=== PATIENT | female | born 1965 | race Caucasian/White ===

== ENCOUNTER 2017-06-17 13:03 | Inpatient (IN) ==
[2017-06-17] MEDS ORDERED: 0.9 % SODIUM CHLORIDE 1,000 ML IV ONE (13:37)
[2017-06-17] MEDS ORDERED: ONDANSETRON 4 MG/2 ML VIAL IV ONE (13:37)
[2017-06-17 14:20] LABS: Basophils # (Auto) 0 K/mcL (0.0-0.3); Basophils % (Auto) 0.3 % (0.0-2.0); Eosinophils # (Auto) 0.2 K/mcL (0.0-0.7); Eosinophils % (Auto) 2.8 % (0.0-7.0); Mean Cell Volume 89.8 fL (80.0-100.0); Mean Corpuscular HGB Conc 34.4 g/dL (31.0-36.0); Mean Corpuscular Hemoglobin 30.9 pg (26.0-34.0); Monocytes # (Auto) 0.7 K/mcL (0.1-0.9); Monocytes % (Auto) 8.9 % (1.0-12.0); Platelet Count 308 K/mcL (140-440); RBC 4.95 M/mcL (4.00-5.20); Red Cell Distribution Width 12.9 % (11.5-14.5)
--- NOTE | 2017-06-17 14:42 | Cat Scan Report ---
ORIGINAL REPORT CLINICAL INFORMATION: History of urolithiasis and lithotripsy. Left flank pain. COMPARISON: Previous CT scans dated 06/13/2017, 09/17/2016, 02/12/2016 TECHNIQUE: Axial images were obtained through the abdomen and pelvis. Sagittally and coronally reformatted images. FINDINGS: There are tiny calculi bilaterally. These are nonobstructing there is mild left hydronephrosis with prominent left renal pelvis and proximal ureter. Findings are essentially unchanged. There is no left ureteral stone. There is left renal atrophy. This is stable. No right-sided hydronephrosis. No bladder calculus. No detectable bladder mass on this noncontrast enhanced examination. No perinephric hematoma. No hemoperitoneum. No pneumoperitoneum. Lung bases are negative. No parenchymal infiltrate or mass. There is a 2.5 cm low-density mass in the right lobe of the liver. This is probably benign and is stable since 2016. Spleen is mildly enlarged. Spleen measures 13 cm maximally. Adrenal glands are negative. Negative pancreas. No free intraperitoneal fluid. No localized fluid collections. No pneumoperitoneum. Colon is negative. No mechanical small bowel obstruction. Uterus is present and anteflexed. No adnexal mass. IMPRESSION: 1. Tiny renal calculi bilaterally. Mild left hydronephrosis and proximal left hydroureter. Findings are unchanged 2. No perinephric hemorrhage. No acute intra-abdominal abnormality. The exam was performed using radiation dose optimization techniques including, but not limited to, automated exposure control, adjustment of the mA and/or kV according to patient size and use of iterative reconstruction technique. 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 There is no mass in the surgical bed. No fluid collection. No evidence for osseous metastases. Pelvis and spine are negative. Hips are negative. No retroperitoneal or inguinal adenopathy. Interpreted and Authenticated by: Naveen Angela 06/17/17
[2017-06-17 14:43] LABS: ALT/SGPT 321 U/l (0-40); Albumin 3.9 gm/dL (3.2-5.2); Albumin/Globulin Ratio 1.1 (1.0-2.3); Alkaline Phosphatase 276 U/L (39-117); Blood Urea Nitrogen 13 mg/dl (6-20)
--- NOTE | 2017-06-17 16:27 | Ultrasound Report ---
CLINICAL INFORMATION: Previous lithotripsy. Elevated liver function tests and severe abdominal pain TECHNIQUE: Grayscale and color flow Doppler spectral imaging COMPARISON: CT scan dated 06/17/2017 FINDINGS: There are multiple small mobile gallstones. Largest gallstone measures 1.6 cm. No gallbladder wall thickening. No pericholecystic fluid. No positive sonographic Solomon sign Common bile duct measures 8 mm. No detectable choledocholithiasis. Choledocholithiasis is not excluded based upon this examination. No intrahepatic bile duct dilatation Liver is enlarged. Liver measures 23 cm maximally. There is septated cystic abnormality in the right lobe of the liver. This is benign and stable. No other focal intrahepatic abnormality. Liver contour is smooth. No ascites. Normal hepatopedal portal venous flow. Portal vein is prominent and measures approximately 20 mm in cross-sectional diameter. Visualized portions of the pancreas are negative. IMPRESSION: 1. Cholelithiasis. Prominent common bile duct measures 8 mm. No definite choledocholithiasis identified on this examination. 2. Liver appears enlarged. No solid mass. Prominent portal vein with hepatopedal portal venous flow. Interpreted and Authenticated by: Naveen Angela 06/17/17
--- NOTE | 2017-06-17 17:22 | Emergency Department Note ---
Nausea/Vomiting/Diarrhea HPI - General Chief complaint: Nausea/Vomiting/Diarrhea Stated complaint: l flank pain, lithotripsy 2 wks ago Time Seen by Provider: 06/17/17 13:36 Source: patient Mode of arrival: ambulatory Limitations: no limitations - History of Present Illness HPI Narrative: 52-year-old female presents with continued abdominal pain, nausea, vomiting, and diarrhea. States she had kidney stones removed [address] Rutledge. States she has had abdominal pain, nausea, vomiting, and diarrhea since. She is getting worse not better. The pain is across her entire upper abdomen and describes it is very diffuse. Positive chills, unknown fever. No dysuria or frequency. No hematuria. She was seen 4 days ago for the same and states she is worse since then. She denies taking any Tylenol or ibuprofen at home. Denies any alcohol use. - Related Data Home Medications Medication Instructions Recorded Confirmed Insulin Glargine, Human [Lantus] 80 units SQ HS 02/12/16 06/17/17 Gabapentin [Neurontin] 100 mg PO TID 09/17/16 06/17/17 Insulin Aspart [Novolog] 60 unit SQ DAILY 06/03/17 06/17/17 Lisinopril [Zestril] 10 mg PO DAILY 06/03/17 06/17/17 Previous Rx's Medication Instructions Recorded Hydrocodone/APAP 7.5/325Mg [[place] 1 - 2 tab PO Q6HP PRN #20 tab 06/03/17 7.5-325Mg] Phenazopyridine [Pyridium] 200 mg PO TIDP PRN #15 tab 06/13/17 Allergies Allergy/AdvReac Type Severity Reaction Status Date / Time Sulfa (Sulfonamide Allergy Intermediate Rash Verified 06/13/17 11:21 Antibiotics) promethazine [From Phenergan] AdvReac Intermediate Agitated Verified 06/13/17 11 :21 Review of Systems All systems ED: reviewed and negative except as stated. Past Medical History - Past Medical History Medical history: Reports: DM, hyperlipidemia, hypertension, other (Recurrent kidney stones-including staghorn calculi on the right.) Surgical history ED: Reports: orthopedic, other (Removal of sarcoma from left hip/gluteal area 6 months ago), other (Previous urostomy tube and removal staghorn calculi from right kidney. Holmium laser ureteral stone treatment on the left) - Social History smoking status: Current some day smoker Alcohol use: Reports: None Drug use: Reports: none Physical Exam Limitations: no limitations General appearance: alert, in no apparent distress Head: atraumatic, normocephalic, normal inspection Eye: Present: normal appearance. Absent: conjunctival injection ENT: normal exam, normal oropharynx, mucous membranes moist, normal external ear exam Neck: Present: normal inspection, trachea midline. Absent: tenderness, lymphadenopathy Chest: Present: normal inspection, symmetric chest wall rise Respiratory: Present: normal lung sounds bilaterally. Absent: respiratory distress, wheezes, accessory muscle use Cardiovascular: Present: regular rate, normal heart sounds Abdominal: Present: soft, tenderness (Diffuse upper abdominal tenderness with palpation. Mildly worse on the right upper quadrant. No lower abdominal tenderness), normal bowel sounds. Absent: distention, guarding, rebound, mass Extremities: Present: normal inspection, normal capillary refill. Absent: pedal edema Neurological: Present: alert, oriented X3, normal gait Psychiatric: Present: normal affect, normal mood Skin: Present: warm, dry, intact, normal color Course Course Narrative: Patient had no acute abnormalities on her CT of her abdomen and pelvis. However her liver function tests were 10 times higher than they were 4 days ago. He again adamantly denies any taking medications that would cause this or drinking any alcohol. 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 I did speak with Dr. Dsouza , the surgeon pharmacy innovation assistant. He would like to admit the patient. Vital Signs Temperature 97.4 F 06/17/17 13:03 Pulse Rate 110 H 06/17/17 13:03 Respiratory Rate 20 06/17/17 13:03 Blood Pressure 145/89 06/17/17 13:03 Pulse Oximetry (%) 96 06/17/17 13:03 Temperature 97.4 F 06/17/17 13:03 Pulse Rate 91 H 06/17/17 16:07 Respiratory Rate 20 06/17/17 13:03 Blood Pressure 138/83 06/17/17 16:07 Pulse Oximetry (%) 95 06/17/17 16:07 Nausea/Vomiting/Diarrhea - Lab Data Result diagrams: 06/17/17 13:50 06/17/17 13:50 Lab Results 0306/17/17 06/17/17 Range/Units 13:50 13:50 13:50 WBC 8.1 (4.5-11.0) K/mcL RBC 4.95 (4.00-5.20) M/mcL Hgb 15.3 H (12.0-15.0) g/dL Hct 44.4 (36.0-48.0) % MCV 89.8 (80.0-100.0) fL MCH 30.9 (26.0-34.0) pg MCHC 34.4 (31.0-36.0) g/dL RDW 12.9 (11.5-14.5) % Plt Count 308 (140-440) K/mcL MPV 7.2 L (7.4-10.4) fL Gran % 76.0 (38.0-78.0) % Lymph % (Auto) 12.0 L (15.5-49.0) % [place] % (Auto) 8.9 (1.0-12.0) % Eos % (Auto) 2.8 (0.0-7.0) % Baso % (Auto) 0.3 (0.0-2.0) % Gran # 6.1 (1.8-8.0) K/mcL Lymph # (Auto) 1.0 L (1.5-4.8) K/mcL [place] # (Auto) 0.7 (0.1-0.9) K/mcL Eos # (Auto) 0.2 (0.0-0.7) K/mcL Baso # (Auto) 0 (0.0-0.3) K/mcL VBG Lactic Acid 0.8 (0.5-2.2) mmol/L Sodium 137 (133-145) mmol/L Potassium 4.1 (3.3-5.1) mmol/L Chloride 96 (96-108) mmol/L Carbon Dioxide 22 (22-30) mmol/L Anion Gap 19.0 H (8-16) BUN 13 (6-20) mg/dl Creatinine 0.6 (0.6-1.1) mg/dl GFR Calculation 106 Glucose 378 H (70-105) mg/dL Calcium 9.3 (8.6-10.4) mg/dl Total Bilirubin 0.4 (0.0-1.0) mg/dL AST 86 H (0-37) U/l ALT 321 H (0-40) U/l Alkaline Phosphatase 276 H (39-117) U/L Total Protein 7.4 (5.9-8.4) gm/dL Albumin 3.9 (3.2-5.2) gm/dL Globulin 3.5 (2.2-3.7) gm/dL Albumin/Globulin Ratio 1.1 (1.0-2.3) Disposition Pt seen by PASTE UP ARTIST APPRENTICE/PA only: No Clinical Impression: Cholelithiasis, Elevated LFTs Disposition: Home, Self-Care Condition: Fair Referrals: Coral Dsouza MD [Physician] - Time of Disposition: 17:25
[2017-06-17] MEDS: 0.9 % SODIUM CHLORIDE 1,000 ML IV SCH (17:30)
--- NOTE | 2017-06-17 19:37 | XRay Report ---
CLINICAL INFORMATION: Preoperative evaluation TECHNIQUE: AP portable semiupright chest x-ray COMPARISON: None. FINDINGS: Lungs are negative. No parenchymal infiltrate or mass. Heart size and vascularity are normal. Fifi and mediastinum are negative. No acute abnormality IMPRESSION: Negative AP chest x-ray Interpreted and Authenticated by: Naveen Angela 06/17/17
[2017-06-17] MEDS: PIPERACILLIN SODIUM/TAZOBACTAM 3.375 GM in DEXTROSE 5% IN WATER 50 ML IV SCH (20:35)
[2017-06-17] MEDS: ONDANSETRON 4 MG/2 ML VIAL IV PRN (21:58)
[2017-06-17] MEDS: HYDROmorphone 2 MG/ML VIAL IV PRN (22:02)
[2017-06-18] MEDS: PIPERACILLIN SODIUM/TAZOBACTAM 3.375 GM in DEXTROSE 5% IN WATER 50 ML IV SCH ×4 (00:30→18:15)
--- NOTE | 2017-06-18 00:34 | Emergency Department Note ---
ED Note Addendum Note Addendum: I saw this patient with Bharati ALONSO. I agree with her evaluation management documentation. I also discussed with her disposition further management with surgery. I personally reviewed her CT scan mildly from this visit but the last one as well
[2017-06-18] MEDS: HYDROmorphone 2 MG/ML VIAL IV PRN ×9 (02:00→21:40)
[2017-06-18] MEDS: 0.9 % SODIUM CHLORIDE 1,000 ML IV SCH ×3 (02:22→19:02)
[2017-06-18] MEDS ORDERED: INSULIN LISPRO 1 UNIT/0.01 ML UNIT SQ ONE (03:06)
[2017-06-18] MEDS: INSULIN LISPRO 1 UNIT/0.01 ML UNIT SQ SCH ×5 (03:08→23:48)
[2017-06-18] MEDS: ONDANSETRON 4 MG/2 ML VIAL IV PRN ×2 (05:04→21:47)
[2017-06-18 05:33] LABS: Basophils # (Auto) 0 K/mcL (0.0-0.3); Basophils % (Auto) 0.5 % (0.0-2.0); Eosinophils # (Auto) 0.3 K/mcL (0.0-0.7); Eosinophils % (Auto) 5.5 % (0.0-7.0); Granulocytes % (Auto) 57.1 % (38.0-78.0); Lymphocytes # (Auto) 1.6 K/mcL (1.5-4.8); Lymphocytes % (Auto) 26.7 % (15.5-49.0); Mean Cell Volume 90.6 fL (80.0-100.0); Mean Corpuscular HGB Conc 34.1 g/dL (31.0-36.0); Mean Corpuscular Hemoglobin 30.9 pg (26.0-34.0); Monocytes # (Auto) 0.6 K/mcL (0.1-0.9); Monocytes % (Auto) 10.2 % (1.0-12.0); Platelet Count 271 K/mcL (140-440); RBC 4.26 M/mcL (4.00-5.20); Red Cell Distribution Width 12.9 % (11.5-14.5)
[2017-06-18 05:47] LABS: Hemoglobin A1C 12.7 % HGB (4.0-6.0)
[2017-06-18 06:40] LABS: ALT/SGPT 209 U/l (0-40); Albumin 3.1 gm/dL (3.2-5.2); Alkaline Phosphatase 216 U/L (39-117); Bilirubin,Direct < 0.2 mg/dL (0.0-0.3); Blood Urea Nitrogen 8 mg/dl (6-20); Gamma Glutamyl Transpeptidase 384 U/L (5-36); Uric Acid 3.4 mg/dL (2.5-8.0)
[2017-06-18] MEDS: POTASSIUM PHOSPHATE 40 MEQ in DEXTROSE 5% IN WATER 500 ML IV SCH ×2 (10:01→14:19)
[2017-06-18] MEDS: MAGNESIUM SULFATE 32.48 MEQ in DEXTROSE 5% IN WATER 100 ML IV SCH ×2 (10:01→12:17)
--- NOTE | 2017-06-18 10:12 | Magnetic Resonance Report ---
CLINICAL INFORMATION: Cholelithiasis. Dilated common bile duct suspicious for choledocholithiasis TECHNIQUE: Routine noncontrast MRCP COMPARISON: Previous ultrasound dated 06/17/[address] scan dated 06/17/2017 FINDINGS: There are at least two large gallstones. These are demonstrated on previous ultrasound. No gallbladder wall thickening. No pericholecystic fluid. Common bile that measures 8 mm. This is mildly dilated. No significant intrahepatic bile duct dilatation. No detectable choledocholithiasis. No intraluminal filling defects. No detectable ampullary mass. Pancreatic duct is negative. There are at least two small cysts in the right lobe of the liver. There is a cyst in the posterior segment of the right lobe of the liver which was demonstrated on previous ultrasound. No solid hepatic mass. Multiple renal cortical and parapelvic cysts. No solid mass. Pancreas is negative. Spleen is negative. No splenomegaly. Adrenal glands are negative. IMPRESSION: 1. Cholelithiasis. 2. Prominent common bile duct without intrahepatic bile duct dilatation. No choledocholithiasis. No ampullary or common bile duct mass 3. Renal and hepatic cysts Interpreted and Authenticated by: Naveen Angela 06/18/17
--- NOTE | 2017-06-18 10:48 | General Surg History&Physical ---
History of Present Illness Patient information: Note initiated : 06/18/17 at 10:46 am Service Date, if different from initiated Date: [] Patient: Raisa Scruggs a 52 y/o F admitted on 06/17/17 for l flank pain, lithotripsy 2 wks ago. Chief Complaint: [] HPI: Ms. Scruggs is a 52 year old F admitted with abdominal pain nausea vomiting and diarrhea. The patient has a 5 day history of epigastric and right upper quadrant pain. She had multiple episodes of nausea and vomiting since onset of the pain. She has also had explosive diarrhea. The pain has been continuous since onset. She has not had similar pain in the past. She was seen in the emergency room 4 days ago and returns on the day of admission with worsening discomfort. She has documented gallstone disease with a dilated common bile duct with mild elevation of her transaminases. Patient is admitted and will have MRCP followed by laparoscopic cholecystectomy. Review of Systems - Constitutional lethargy, malaise, weight loss - EENT Nose, mouth and throat: no abnormal hearing, no dizziness, no headache(s) - Cardiovascular no chest pain at rest, no chest pain with activity, no dyspnea on exertion, no palpatations, no rapid heart rate, no syncope - Respiratory no cough, no dyspnea on exertion, no wheezing, no pain with cough - Gastrointestinal abdominal pain, diarrhea, heartburn, nausea, vomiting - Genitourinary Genitourinary: dysuria, flank pain, urinary frequency, urinary incontinence, urinary urgency - Musculoskeletal arthralgias, joint swelling, myalgias, stiffness - Integumentary no bleeding lesions, no changing lesions, no new lesions, no pruritus, no rash - Neurological no abnormal hearing, no confusion, no convulsions, no headache(s), no numbness, no syncope, no tremor(s), no vertigo, no weakness, no other visual disturbances - Psychiatric depression, no anxiety, no memory loss - Endocrine no change in body appearance, no excessive sweating, no palpitations, no polydipsia, no polyphagia, no polyuria - Hematologic/Lymphatic no easy bleeding, no easy bruising, no lymphadenopathy - Allergic/Immunologic no tongue swelling, no throat swelling, no uticaria, no wheezing, no lip swelling Past History Past medical history: Diabetes mellitus uncontrolled Multiple kidney stones bilaterally Multiple urinary tract infections Hypertension Past surgical history: Open removal of staghorn calculus right kidney Tubal ligation Percutaneous nephrostomy right kidney Excision of sarcoma left buttock Past family history: Stroke Diabetes mellitus Coronary artery disease with heart attack Hypertension Recurrent kidney stones Past social history: Everyday smoker but usually 2 cigarettes per day Denies alcohol use for 7 years Denies drug use Medications and Allergies Home Medications Medication Instructions Recorded Confirmed Type Insulin Glargine, Human [Lantus] 80 units SQ HS 02/12/16 06/18/17 History Gabapentin [Neurontin] 100 mg PO TID 09/17/16 06/18/17 History Hydrocodone/APAP 7.5/325Mg [[place] 1 - 2 tab PO Q6HP PRN #20 tab 06/03/17 Rx 7.5-325Mg] Insulin Aspart [Novolog] 60 unit SQ DAILY 06/03/17 06/18/17 History Lisinopril [Zestril] 10 mg PO DAILY 06/03/17 06/18/17 History Phenazopyridine [Pyridium] 200 mg PO TIDP PRN #15 tab 06/13/17 06/18/17 Rx DULoxetine [Cymbalta] 30 mg PO DAILY 06/18/17 06/18/17 History traZODone HCL [Trazodone HCl] 50 mg PO HS 06/18/17 06/18/17 History Allergies Allergy/AdvReac Type Severity Reaction Status Date / Time Sulfa (Sulfonamide Allergy Intermediate Rash Verified 06/13/17 11:21 Antibiotics) promethazine [From Phenergan] AdvReac Intermediate Agitated Verified 06/13/17 11 :21 Exam Temp Pulse Resp BP Pulse Ox 97.5 F 79 12 136/80 92 06/18/17 07:37 06/18/17 07:37 06/18/17 07:37 06/18/17 07:37 06/18/17 07:37 - General physical appearance well developed, well nourished, no distress, moderate pain, obese - Eyes PERRL, normal ocular movement. negative: icteric - ENT normal pinna, normal nares, normal mucosa, no hearing loss, no congestion - Head Head exam IM: Present: atraumatic, normal inspection, normocephalic - Neck no masses, no bruits, trachea midline, no lymphadectomy, no venous distension - Cardiovascular Cardiovascular exam IM: Present: normal rate and rhythm, RRR, +S1, +S2. Absent : JVD - Respiratory normal expansion, normal respiratory effort, clear to percussion, clear to auscultation - Abdomen Abdomen: Present: soft, tender (Tenderness in epigastrium and right upper quadrant), bowel sounds (Good active bowel sounds), guarding ( guarding and right upper quadrant) Hernia: Present: none - Genitourinary Present: normal external genitalia - Integumentary Present: no rash, no growths, no abnormal pigmentation - Neurologic Present: normal coordination, normal sensation - Musculoskeletal Present: normal gait, normal posture - Psychiatric Present: oriented to time, oriented to person, oriented to place, speech is normal, memory intact Assessment and Plan (1) Cholelithiasis and cholecystitis with obstruction Complete MRCP Schedule for laparoscopic cholecystectomy in the morning Continue to cover with IV Zosyn Status: Acute (2) Diabetes mellitus type 1, uncontrolled, insulin dependent Accu-Cheks every 6 hours Sliding scale insulin, medium scale until patient can resume diabetic diet Supplemental basal insulin if she continually runs high glucose Status: Acute Qualifiers: Diabetes mellitus complication status: without complication Qualified Code( s): E10.65 - Type 1 diabetes mellitus with hyperglycemia (3) Hypertension, essential Status: Acute (4) Chronic lower urinary tract infection Status: Acute (5) Calculus of kidney Status: Acute
[2017-06-18] MEDS: ACETAMINOPHEN 1,000 MG/100 ML BOTTLE IV SCH ×2 (16:15→23:42)
[2017-06-18] MEDS: KETOROLAC 30 MG/ML VIAL IV PRN (18:14)
[2017-06-19] MEDS: KETOROLAC 30 MG/ML VIAL IV PRN ×3 (00:37→20:16)
[2017-06-19] MEDS: HYDROmorphone 2 MG/ML VIAL IV PRN ×6 (00:43→21:57)
[2017-06-19] MEDS: PIPERACILLIN SODIUM/TAZOBACTAM 3.375 GM in DEXTROSE 5% IN WATER 50 ML IV SCH ×4 (00:47→17:44)
[2017-06-19] MEDS: 0.9 % SODIUM CHLORIDE 1,000 ML IV SCH ×2 (01:50→11:37)
[2017-06-19] MEDS: ACETAMINOPHEN 1,000 MG/100 ML BOTTLE IV SCH ×3 (05:36→17:35)
[2017-06-19 05:38] LABS: Basophils # (Auto) 0 K/mcL (0.0-0.3); Basophils % (Auto) 0.6 % (0.0-2.0); Eosinophils # (Auto) 0.4 K/mcL (0.0-0.7); Eosinophils % (Auto) 5.8 % (0.0-7.0); Granulocytes % (Auto) 49.7 % (38.0-78.0); Lymphocytes % (Auto) 33.7 % (15.5-49.0); Mean Cell Volume 91.4 fL (80.0-100.0); Mean Corpuscular HGB Conc 33.7 g/dL (31.0-36.0); Mean Corpuscular Hemoglobin 30.8 pg (26.0-34.0); Monocytes # (Auto) 0.6 K/mcL (0.1-0.9); Monocytes % (Auto) 10.2 % (1.0-12.0); Platelet Count 285 K/mcL (140-440); RBC 4.25 M/mcL (4.00-5.20); Red Cell Distribution Width 12.9 % (11.5-14.5)
[2017-06-19] MEDS: INSULIN LISPRO 1 UNIT/0.01 ML UNIT SQ SCH ×3 (05:41→21:46)
[2017-06-19 06:11] LABS: ALT/SGPT 132 U/l (0-40); Albumin 3.3 gm/dL (3.2-5.2); Albumin/Globulin Ratio 1.3 (1.0-2.3); Alkaline Phosphatase 182 U/L (39-117); Bilirubin,Direct < 0.2 mg/dL (0.0-0.3); Blood Urea Nitrogen 4 mg/dl (6-20); Gamma Glutamyl Transpeptidase 318 U/L (5-36); Uric Acid 2.9 mg/dL (2.5-8.0)
[2017-06-19] MEDS ORDERED: IPRATROPIUM/ALBUTEROL 3 ML AMPUL.NEB NEB PRN (09:09)
[2017-06-19] MEDS ORDERED: LACTATED RINGERS 250 ML IV PRN (09:09)
[2017-06-19] MEDS ORDERED: NALOXONE HCL 0.4 MG/ML VIAL IV PRN (09:09)
[2017-06-19] MEDS ORDERED: MEPERIDINE 25 MG/ML SYRINGE IV PRN (09:09)
[2017-06-19] MEDS ORDERED: ONDANSETRON 4 MG/2 ML VIAL IV PRN ×2 (09:09→12:07)
[2017-06-19] MEDS ORDERED: FLUMAZENIL 0.1 MG/ML ML IV PRN (09:09)
[2017-06-19] MEDS ORDERED: BENZOCAINE/MENTHOL 1 LOZENGE PO PRN (09:09)
[2017-06-19] MEDS ORDERED: diphenhydrAMINE 50 MG/ML VIAL IV PRN (09:09)
[2017-06-19] MEDS ORDERED: LACTATED RINGERS 1,000 ML IV SCH (09:15)
[2017-06-19] MEDS ORDERED: ROCURONIUM 10 MG/ML ML IV ONE (09:25)
[2017-06-19] MEDS ORDERED: MIDAZOLAM 5 MG/5 ML VIAL IV ONE (09:25)
[2017-06-19] MEDS ORDERED: fentaNYL 250 MCG/5 ML VIAL IV ONE (09:25)
[2017-06-19] MEDS ORDERED: GLYCOPYRROLATE 0.2 MG/ML VIAL IV ONE (09:25)
[2017-06-19] MEDS ORDERED: PROPOFOL 200 MG/20 ML VIAL IV ONE (09:25)
[2017-06-19] MEDS ORDERED: DEXAMETHASONE 10 MG/ML VIAL IV ONE (09:25)
[2017-06-19] MEDS ORDERED: SUCCINYLCHOLINE 20 MG/ML ML IV ONE (09:25)
[2017-06-19] MEDS ORDERED: ONDANSETRON 4 MG/2 ML VIAL IV ONE (09:25)
[2017-06-19] MEDS ORDERED: LIDOCAINE HCL/PF 100 MG/5 ML SYRINGE IV ONE (09:25)
[2017-06-19] MEDS ORDERED: NEOSTIGMINE 1 MG/ML VIAL IV ONE (09:25)
--- NOTE | 2017-06-19 10:29 | Brief Operative Note ---
Date of procedure: 06/19/17 Pre-op diagnosis: CHOLELITHIASIS WITH CHOLECYSTITIS Post-op diagnosis: other (CHOLELITHIASIS WITH CHOLECYSTITIS) Procedure: LAPAROSCOPIC CHOLECYSTECTOMY Grafts/Implants: No Anesthesia: GETA Findings: CHRONICALLY INFLAMED ,THICKENED GALLBLADDER Complications: none Surgeon: Coral Dsouza Estimated blood loss (cc): 10 Specimens Removed/Pathology: other (GALLBLADDER) Condition: stable Disposition: PACU
[2017-06-19] MEDS: fentaNYL 100 MCG/2 ML VIAL IV PRN ×3 (10:45→11:01)
[2017-06-19] MEDS: ONDANSETRON 4 MG/2 ML VIAL IV PRN ×2 (11:15→12:05)
[2017-06-19] MEDS ORDERED: 0.9 % SODIUM CHLORIDE 1,000 ML IV SCH (12:07)
[2017-06-19] MEDS ORDERED: GABAPENTIN 100 MG CAPSULE PO SCH (15:00)
[2017-06-19] MEDS: GABAPENTIN 100 MG CAPSULE PO SCH ×2 (16:14→21:46)
[2017-06-19] MEDS ORDERED: INSULIN LISPRO 1 UNIT/0.01 ML UNIT SQ SCH (18:00)
[2017-06-19] MEDS ORDERED: traZODone HCL 50 MG TABLET PO SCH ×2 (21:00)
[2017-06-19] MEDS ORDERED: INSULIN GLARGINE, HUMAN 1 UNIT/0.01 ML SQ SCH (21:00)
[2017-06-20] MEDS: PIPERACILLIN SODIUM/TAZOBACTAM 3.375 GM in DEXTROSE 5% IN WATER 50 ML IV SCH ×3 (00:20→12:12)
[2017-06-20] MEDS: ACETAMINOPHEN 1,000 MG/100 ML BOTTLE IV SCH ×3 (00:33→12:12)
[2017-06-20] MEDS: HYDROmorphone 2 MG/ML VIAL IV PRN ×4 (00:57→11:01)
[2017-06-20 05:25] LABS: Basophils # (Auto) 0 K/mcL (0.0-0.3); Basophils % (Auto) 0.3 % (0.0-2.0); Eosinophils # (Auto) 0.1 K/mcL (0.0-0.7); Eosinophils % (Auto) 1.5 % (0.0-7.0); Granulocytes % (Auto) 58.8 % (38.0-78.0); Lymphocytes # (Auto) 2.3 K/mcL (1.5-4.8); Lymphocytes % (Auto) 30.3 % (15.5-49.0); Mean Cell Volume 91.8 fL (80.0-100.0); Mean Corpuscular HGB Conc 33.9 g/dL (31.0-36.0); Mean Corpuscular Hemoglobin 31.1 pg (26.0-34.0); Monocytes # (Auto) 0.7 K/mcL (0.1-0.9); Monocytes % (Auto) 9.1 % (1.0-12.0); Platelet Count 277 K/mcL (140-440); RBC 4.12 M/mcL (4.00-5.20); Red Cell Distribution Width 13.3 % (11.5-14.5)
[2017-06-20 05:46] LABS: ALT/SGPT 93 U/l (0-40); Albumin 3.1 gm/dL (3.2-5.2); Albumin/Globulin Ratio 1.2 (1.0-2.3); Alkaline Phosphatase 174 U/L (39-117); Bilirubin,Direct < 0.2 mg/dL (0.0-0.3); Blood Urea Nitrogen 9 mg/dl (6-20); Gamma Glutamyl Transpeptidase 264 U/L (5-36); Uric Acid 3.2 mg/dL (2.5-8.0)
[2017-06-20] MEDS: KETOROLAC 30 MG/ML VIAL IV PRN (06:51)
[2017-06-20] MEDS: INSULIN LISPRO 1 UNIT/0.01 ML UNIT SQ SCH ×2 (07:21→12:11)
[2017-06-20] MEDS ORDERED: LISINOPRIL 10 MG TABLET PO SCH ×2 (09:00)
[2017-06-20] MEDS ORDERED: INSULIN ASPART SQ SCH (09:00)
[2017-06-20] MEDS ORDERED: DULoxetine 30 MG CAPSULE PO SCH ×2 (09:00)
[2017-06-20] MEDS: GABAPENTIN 100 MG CAPSULE PO SCH (09:55)
--- NOTE | 2017-06-20 12:09 | Surgical Pathology Report ---
HISTOLOGY SPECIMEN MICROSCOPIC DIAGNOSIS GALLBLADDER, CHOLECYSTECTOMY: -- CHRONIC CHOLECYSTITIS. -- CHOLELITHIASIS. (DMT:sandra) PROCEDURAL IMPRESSION Cholelithiasis and cholecystitis with obstruction. GROSS DESCRIPTION Received in formalin labeled gallbladder, is an 11.8 x 4.7 x 2.5 cm white to pink-darnell gallbladder. The serosal surface is smooth and glistening. There are multiple metal clips present including one on the cystic duct. There is also a staple line present on the cystic duct. The lumen contains viscous clear fluid and multiple yellow-brown multifacted stones ranging in size from 0.2 to 1.9 cm in greatest dimension. There is a 1.6 cm stone lodged within the duct. The mucosa is white-darnell and smooth. The wall is up to 0.5 cm thick. [employer] Worker sections submitted - one cassette. (STM:sln) Electronically Signed by: Jorge Erickson M.D.
[2017-06-20] MEDS ORDERED: INSULIN LISPRO 1 UNIT/0.01 ML UNIT SQ ONE (12:30)
[2017-06-20] MEDS ORDERED: oxyCODONE/APAP 10/325MG TABLET PO ONE ×2 (13:07→13:16)
--- NOTE | 2017-06-20 13:23 | Discharge Summary ---
Providers - Providers Patient information: Note initiated : 06/20/17 at 1:22 pm Service Date, if different from initiated Date: [] Patient: Raisa Scruggs 52 y/o F admitted on 06/17/17 for Laparoscopic Cholecystectomy. Chief Complaint: [] Date of admission: 06/17/17 Discharge date: 06/20/17 Attending physician: Coral Dsouza Hospitalization Hospital course: 52-year-old female who was admitted on 17 June with abdominal pain nausea vomiting and diarrhea. She had been symptomatic for 5 days with epigastric and right upper quadrant pain followed by multiple episodes of nausea and vomiting. The pain was continuous from the time of onset. She was noted to have gallstone disease with a dilated common bile duct and bowel elevation of her transaminases. She was admitted and an MRCP was done. This did not reveal any evidence of common bile duct stone. The patient underwent laparoscopic cholecystectomy on 19 June with findings of subacute inflammation of the gallbladder with stone impacted in the cystic duct. She has had an uneventful postoperative course and is discharged home in stable satisfactory condition. Discharge diagnosis: Cholelithiasis with cholecystitis Secondary discharge diagnosis: Diabetes mellitus uncontrolled Essential hypertension Chronic lower urinary tract infection Recurrent calculus of kidney Reason for admission: Abdominal pain nausea and vomiting Procedures: Laparoscopic cholecystectomy 19 June 2017 Pertinent studies/significant findings: MRCP Complications: None Exam Temp Pulse Resp BP Pulse Ox 97.6 F 72 16 151/76 96 06/20/17 11:14 06/20/17 04:00 06/20/17 11:14 06/20/17 11:14 06/20/17 11:14 - General physical appearance well developed, well nourished, no distress - Eyes PERRL, normal ocular movement. negative: icteric - ENT normal pinna, normal nares, normal mucosa, no hearing loss, no congestion - Head Head exam IM: Present: atraumatic, normocephalic - Neck no masses, no bruits, trachea midline, no lymphadectomy, no venous distension - Cardiovascular Cardiovascular exam IM: Present: normal rate and rhythm - Respiratory normal expansion, normal respiratory effort, clear to percussion, clear to auscultation - Abdomen Abdomen: Present: soft, tender, bowel sounds, distended (Mildly distended with active bowel sounds; tenderness around port sites) Hernia: Present: none - Genitourinary Present: normal external genitalia - Integumentary Present: no rash, no growths, no abnormal pigmentation - Neurologic Present: normal coordination, normal sensation - Musculoskeletal Present: normal gait, normal posture - Psychiatric Present: oriented to time, oriented to person, oriented to place, speech is normal, memory intact Discharge Plan - Patient/Caregiver Discharge Instructions Activity: increase activity as tolerated Diet: Low Fat, Consistent Carbohydrate Additional Instructions: Follow-up appointment in the office on 01 July Empty Raj-Avilez canister once daily or as needed May shower with Tegaderm dressing in place Continue home medications as preop Prescriptions: Ondansetron HCl [Zofran] 4 mg PO Q4HP PRN #30 tab PRN Reason: Nausea And Vomiting oxyCODONE HCL/ACETAMINOPHEN [Endocet 10-325 mg Tablet] 1 each PO Q4HP PRN #60 tab PRN Reason: Pain Level > 6 - Follow up Plan Follow up with: Coral Dsouza MD [Physician] - 07/03/17 10:15 am Disposition: Home, Self-Care Prognosis: Good Rehab Potential: Good I certify that the patient requires SNF services.: No Overall status at discharge: patient is not back to baseline Pending Studies Resuscitation Status Full Code Diet Consistent Carbohydrate Diet Start FriJun 19 1653 Diagnostic Test (Pha) (Accu-Chek) 1 each FS ACHS COUNT INCLUDES THE [facility] Last Admin: 06/20/17 11:50 Dose: 1 each Admin: 06/20/17 06:51 Dose: 1 each Admin: 06/19/17 21:45 Dose: 1 each Admin: 06/19/17 17:28 Dose: 1 each Duloxetine HCl (Cymbalta) 30 mg PO DAILY COUNT INCLUDES THE [facility] Last Admin: 06/20/17 09:55 Dose: 30 mg Gabapentin (Neurontin) 100 mg PO TID COUNT INCLUDES THE [facility] Last Admin: 06/20/17 09:55 Dose: 100 mg Admin: 06/19/17 21:46 Dose: 100 mg Admin: 06/19/17 16:14 Dose: 100 mg Hydromorphone HCl (Dilaudid) 1 mg IV Q2HP PRN PRN Reason: PAIN LEVEL > 6 Last Admin: 06/20/17 11:01 Dose: 1 mg Admin: 06/20/17 08:25 Dose: 1 mg Admin: 06/20/17 04:32 Dose: 1 mg Admin: 06/20/17 00:57 Dose: 1 mg Admin: 06/19/17 21:57 Dose: 1 mg Admin: 06/19/17 18:57 Dose: 1 mg Admin: 06/19/17 16:11 Dose: 1 mg Admin: 06/19/17 12:40 Dose: 1 mg Acetaminophen (Ofirmev) 1,000 mg in 100 mls @ 200 mls/hr IV Q6H COUNT INCLUDES THE [facility] Last Admin: 06/20/17 12:12 Dose: 200 mls/hr Infusion: 06/20/17 06:03 Dose: 200 mls/hr Admin: 06/20/17 05:33 Dose: 200 mls/hr Infusion: 06/20/17 01:33 Dose: 0 mls/hr Admin: 06/20/17 00:33 Dose: 200 mls/hr Infusion: 06/19/17 18:05 Dose: 0 mls/hr Admin: 06/19/17 17:35 Dose: 200 mls/hr Piperacillin Sod/Tazobactam (Sod 3.375 gm/ Dextrose) 50 mls @ 100 mls/hr IV Q6H COUNT INCLUDES THE [facility] Last Admin: 06/20/17 12:12 Dose: 100 mls/hr Infusion: 06/20/17 06:04 Dose: 100 mls/hr Admin: 06/20/17 05:34 Dose: 100 mls/hr Infusion: 06/20/17 01:33 Dose: 0 mls/hr Admin: 06/20/17 00:20 Dose: 100 mls/hr Infusion: 06/19/17 18:14 Dose: 100 mls/hr Admin: 06/19/17 17:44 Dose: 100 mls/hr Insulin Glargine (Lantus) 80 unit SQ [facility] Last Admin: 06/19/17 21:46 Dose: 80 unit Insulin Human Lispro (Humalog) 0 unit SQ ACHS DARRICK PRN Reason: Protocol Last Admin: 06/20/17 12:11 Dose: 12 unit Admin: 06/20/17 07:21 Dose: 10 unit Admin: 06/19/17 21:46 Dose: 12 unit Ketorolac Tromethamine (Toradol) 15 mg IV Q6HP PRN PRN Reason: Pain Stop: 06/20/17 16:02 Last Admin: 06/20/17 06:51 Dose: 15 mg Admin: 06/19/17 20:16 Dose: 15 mg Lisinopril (Zestril) 10 mg PO DAILY COUNT INCLUDES THE [facility] Last Admin: 06/20/17 09:55 Dose: 10 mg Non-Formulary Medication (Insulin Aspart [Novolog]) 60 unit SQ DAILY COUNT INCLUDES THE [facility] Last Admin: 06/20/17 12:32 Dose: Ondansetron HCl (Zofran) 4 mg IV Q4-6HP PRN PRN Reason: Nausea And Vomiting Last Admin: 06/20/17 08:25 Dose: 4 mg Trazodone HCl (Desyrel) 50 mg PO HS COUNT INCLUDES THE [facility] Last Admin: 06/19/17 21:59 Dose: 50 mg Shift Summary 06/20/17 04:20 Shift Summary by Uzma Duncan Addendum entered by Uzma Duncan R.N. 06/20/17 05:04: Placed 2L O2 while sleeping. Sats fine on RA while awake. Original Note: Alert and oriented. Uses call light for needs. receives Ofirmev scheduled, also requests Dilaudid, 1mg x4 so far, Toradol x1. Never rates her pain less than a 7. ABA to left abdomen with drain sponge around insertion site with small amount of drainage noted, drsg can be changed PRN, 20mls output tonight. 2 other incision sites to mid-abdomen with irma and tagderm. Up ad jose in room. Appetite intact, tolerating diet, though educated on not eating as much if she is having abdominal pain. Poss d/c home today. Initialized on 06/20/17 04:20 - END OF NOTE
--- NOTE | 2017-06-24 15:51 | Operative Note ---
DATE OF OPERATION: 06/19/2017 PREOPERATIVE DIAGNOSIS: Cholelithiasis with cholecystitis. POSTOPERATIVE DIAGNOSIS: Cholelithiasis with cholecystitis. PROCEDURE: Laparoscopic cholecystectomy. SURGEON: Coral Dsouza M.D. FINDINGS: Chronically inflamed, thickened gallbladder with clear bile. DESCRIPTION: Under general anesthesia, the patient's abdomen was prepped and draped in a sterile field. Supraumbilical incision was made. Veress needle was inserted uneventfully. Abdomen was insufflated with 2.5 liters of CO2. A 12 mm port was placed. Laparoscope was placed. The gallbladder was visualized. It was chronically inflamed and thickened. Under videoscopic guidance, a 12 mm port and two 5 mm ports were placed in the right subcostal region. The gallbladder wall was very thick, so it was decompressed with a Weck needle. It contained clear bile with the consistency of water. The gallbladder was grasped and positioned. The cystic duct was dissected back to the gallbladder. There was a stone impacted in the cystic duct, and this stone was milked back to the junction with the gallbladder. Cystic artery branches were dissected back to the wall of the gallbladder, clipped with three clips each and divided. Cystic duct was then divided with an Endo ROBERT stapler. The gallbladder was from the infrahepatic bed using electrocautery. The gallbladder was placed in an Endopouch and retrieved. Irrigation was carried out. There was minimal blood loss. Air was allowed to escape from the abdomen and the ports were removed. Fascia at the umbilicus was closed with interrupted 0 Vicryl. The other port sites were closed with irma. The patient tolerated the procedure well. Tegaderm dressing was placed. She was awakened, transferred to her bed and taken to the postanesthetic care unit in stable, satisfactory condition. LCS:demarcus Job ID: [id number] Doc ID: [id number] Coral Dsouza M.D.
== END 2017-06-20 14:47 | disposition home or self-care (01) | DRG 418 ==
LOC: ED 13:03 → MEDSUR 17:55
PROVIDERS: ADMIT Family Medicine Adult Medicine; ATTEND Family Medicine Adult Medicine

== ENCOUNTER 2017-06-22 16:46 | Observation (INO) ==
[2017-06-22] MEDS ORDERED: IOPAMIDOL 100 ML BOTTLE IV ONE (16:47)
[2017-06-22] MEDS ORDERED: ONDANSETRON 4 MG/2 ML VIAL IV ONE (17:10)
[2017-06-22] MEDS ORDERED: 0.9 % SODIUM CHLORIDE 1,000 ML IV ONE ×2 (17:10→19:30)
[2017-06-22] MEDS ORDERED: HYDROmorphone 2 MG/ML VIAL IV PRN (17:24)
[2017-06-22 18:07] LABS: Basophils # (Auto) 0 K/mcL (0.0-0.3); Basophils % (Auto) 0.3 % (0.0-2.0); Eosinophils # (Auto) 0.1 K/mcL (0.0-0.7); Eosinophils % (Auto) 2.3 % (0.0-7.0); Granulocytes % (Auto) 73.3 % (38.0-78.0); Lymphocytes # (Auto) 0.6 K/mcL (1.5-4.8); Lymphocytes % (Auto) 11.5 % (15.5-49.0); Mean Cell Volume 90.7 fL (80.0-100.0); Mean Corpuscular HGB Conc 34.2 g/dL (31.0-36.0); Mean Corpuscular Hemoglobin 31.1 pg (26.0-34.0); Monocytes # (Auto) 0.6 K/mcL (0.1-0.9); Monocytes % (Auto) 12.6 % (1.0-12.0); Platelet Count 302 K/mcL (140-440); RBC 4.66 M/mcL (4.00-5.20); Red Cell Distribution Width 13.1 % (11.5-14.5)
[2017-06-22 18:23] LABS: ALT/SGPT 44 U/l (0-40); Albumin 3.7 gm/dL (3.2-5.2); Albumin/Globulin Ratio 1.2 (1.0-2.3); Alkaline Phosphatase 134 U/L (39-117); Blood Urea Nitrogen 8 mg/dl (6-20); Lipase 23 U/L (7-60)
[2017-06-22] MEDS ORDERED: cefTRIAXone 1 GM VIAL IV ONE (18:34)
[2017-06-22 19:06] LABS: Appearance,Urine HAZY; Bacteria,Urine 0 /hpf (0); Bilirubin,Urine NEG (NEG); Color,Urine YELLOW; Glucose,Urine (UA) >=500 mg/dL (NEG); Leukocyte Esterase,Urine 250 /uL (NEG); Mucus,Urine FEW /hpf (0); Protein,Urine NEG (NEG); Specific Gravity,Urine 1.014 (1.000-1.035); Urine Blood 0.03 mg/dL (<0.03); Urine Budding Yeast FEW /hpf (0); Urine Hyaline Cast 1 /lpf (0-2); Urine RBC 13 /hpf (0-1); Urine Squamous Epithelial Cell 2 /hpf (0-4); Urine Transitional Epi Cells < 1 /hpf (0-2); Urine WBC 65 /hpf (0-4); Urobilinogen,Urine NEG (NEG)
[2017-06-22] MEDS ORDERED: ACETAMINOPHEN 325 MG TABLET PO ONE (19:21)
--- NOTE | 2017-06-22 19:21 | Emergency Department Note ---
General Adult HPI - General Chief complaint: Nausea/Vomiting/Diarrhea Stated complaint: Vomiting, pain entire body, cough Time Seen by Provider: 06/22/17 17:09 Source: patient Mode of arrival: ambulatory Limitations: no limitations - History of Present Illness HPI Narrative: 52-year-old female presents with abdominal pain, nausea, and vomiting. Onset yesterday afternoon. She did have her gallbladder out 3 days ago here by Dr. Dsouza. States she was doing well until yesterday afternoon. She is also complaining of bilateral flank pain. No dysuria or frequency. She is unsure if this is related to the surgery or not. She does have a history of kidney stones as well but this feels different. She also has body aches all over since yesterday. She is tearful and states she is just absolutely miserable. Denies cough. Does have a mild sore throat. No ear pain. Did have a normal bowel movement this morning. No shortness of breath or difficulty breathing. No leg pain. She feels her incisions are healing well with the irma intact and her ABA drain is still draining and doing well. - Related Data Home Medications Medication Instructions Recorded Confirmed Insulin Aspart [Novolog] 60 unit SQ DAILY 06/03/17 06/18/17 Lisinopril [Zestril] 10 mg PO DAILY 06/03/17 06/18/17 DULoxetine [Cymbalta] 30 mg PO DAILY 06/18/17 06/18/17 traZODone HCL [Trazodone HCl] 50 mg PO HS 06/18/17 06/18/17 Gabapentin 600 mg PO TID 06/20/17 06/20/17 Insulin Glargine, Human [Lantus] 60 unit SQ HS 06/20/17 06/20/17 Previous Rx's Medication Instructions Recorded Hydrocodone/APAP 7.5/325Mg [[place] 1 - 2 tab PO Q6HP PRN #20 tab 06/03/17 7.5-325Mg] Phenazopyridine [Pyridium] 200 mg PO TIDP PRN #15 tab 06/13/17 Ondansetron HCl [Zofran] 4 mg PO Q4HP PRN #30 tab 06/20/17 oxyCODONE HCL/ACETAMINOPHEN 1 each PO Q4HP PRN #60 tab 06/20/17 [Endocet 10-325 mg Tablet] Allergies Allergy/AdvReac Type Severity Reaction Status Date / Time Sulfa (Sulfonamide Allergy Intermediate Rash Verified 06/22/17 16:51 Antibiotics) promethazine [From Phenergan] AdvReac Intermediate Agitated Verified 06/22/17 16 :51 Review of Systems All systems ED: reviewed and negative except as stated. 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 Holmium laser ureteral stone treatment on the left) - Social History smoking status: Former smoker Alcohol use: Reports: None Drug use: Reports: none Physical Exam Limitations: no limitations General appearance: alert, other (Appears in pain and is tearful) Head: atraumatic, normocephalic, normal inspection Eye: Present: normal appearance. Absent: conjunctival injection ENT: normal exam, normal oropharynx, mucous membranes moist, TM's normal bilaterally, normal external ear exam Neck: Present: normal inspection, trachea midline. Absent: tenderness, lymphadenopathy Chest: Present: normal inspection, symmetric chest wall rise Respiratory: Present: normal lung sounds bilaterally. Absent: respiratory distress, wheezes, accessory muscle use Cardiovascular: Present: regular rate, normal heart sounds, other (Was tachycardic and febrile on arrival but since then vital signs have improved and her heart rate has come down to the 90s.) Abdominal: Present: soft, tenderness (Mild tenderness around the incision sites. The incision sites have irma intact and are well approximated. No redness or drainage. There is a ABA site to the right upper quadrant, the ABA drain is draining well and the site looks good.), normal bowel sounds. Absent: distention, mass Extremities: Present: normal inspection, normal capillary refill. Absent: calf tenderness Back: Present: CVA tenderness (R), CVA tenderness (L) Neurological: Present: alert, oriented X3, normal gait Psychiatric: Present: normal affect, normal mood Skin: Present: warm, dry, intact, normal color, other (Flushed). Absent: rash, cyanosis, diaphoresis Course Course Narrative: Patient has a pyelonephritis as well as influenza B. I did speak with Dr. Dsouza , her surgeon, he feels she should probably be admitted to the hospital for further care at this point. He is happy to consult and see the patient here. I will talk to the hospitalist, Dr. sin regarding admit. @ [address] Billingsley who agrees to see patient and admit. Dr. Dsouza to consult. Vital Signs Temperature 100.0 F H 06/22/17 16:47 Pulse Rate 95 H 06/22/17 16:47 Respiratory Rate 16 06/22/17 16:47 Blood Pressure 141/87 06/22/17 16:47 Pulse Oximetry (%) 97 06/22/17 16:47 Temperature 100.7 F H 06/22/17 19:29 Pulse Rate 85 06/22/17 19:01 Respiratory Rate 16 06/22/17 16:47 Blood Pressure 127/73 06/22/17 19:01 Pulse Oximetry (%) 92 06/22/17 19:01 Medical Decision Making - Lab Data Result diagrams: 06/22/17 17:13 06/22/17 17:13 Lab Results 06/22/17 06/22/17 06/22/17 Range/Units 17:13 17:13 17:13 WBC 4.8 (4.5-11.0) K/mcL RBC 4.66 (4.00-5.20) M/mcL Hgb 14.5 (12.0-15.0) g/dL Hct 42.3 (36.0-48.0) % POC Hct (36.0-48.0) % MCV 90.7 (80.0-100.0) fL MCH 31.1 (26.0-34.0) pg MCHC 34.2 (31.0-36.0) g/dL RDW 13.1 (11.5-14.5) % Plt Count 302 (140-440) K/mcL MPV 7.1 L (7.4-10.4) fL Gran % 73.3 (38.0-78.0) % Lymph % (Auto) 11.5 L (15.5-49.0) % [place] % (Auto) 12.6 H (1.0-12.0) % Eos % (Auto) 2.3 (0.0-7.0) % Baso % (Auto) 0.3 (0.0-2.0) % Gran # 3.5 (1.8-8.0) K/mcL Lymph # (Auto) 0.6 L (1.5-4.8) K/mcL [place] # (Auto) 0.6 (0.1-0.9) K/mcL Eos # (Auto) 0.1 (0.0-0.7) K/mcL Baso # (Auto) 0 (0.0-0.3) K/mcL VBG Lactic Acid 1.2 (0.5-2.2) mmol/L POC Sodium (133-145) mmol/L Sodium 133 (133-145) mmol/L POC Potassium (3.3-5.1) mmol/L Potassium 4.3 (3.3-5.1) mmol/L POC Chloride (96-108) mmol/L Chloride 95 L (96-108) mmol/L Carbon Dioxide 22 (22-30) mmol/L POC Total CO2 (22-30) mmol/L Anion Gap 16.0 (8-16) POC BUN (6-20) mg/dl BUN 8 (6-20) mg/dl Creatinine 0.6 (0.6-1.1) mg/dl POC Creatinine (0.6-1.1) mg/dl GFR Calculation 106 Glucose 315 H (70-105) mg/dL POC Glucose (70-105) mg/dL Calcium 8.9 (8.6-10.4) mg/dl POC WB Ioniz Calcium (1.16-1.32) mmol/L Total Bilirubin 0.3 (0.0-1.0) mg/dL AST 14 (0-37) U/l ALT 44 H (0-40) U/l Alkaline Phosphatase 134 H (39-117) U/L Total Protein 6.9 (5.9-8.4) gm/dL Albumin 3.7 (3.2-5.2) gm/dL Globulin 3.2 (2.2-3.7) gm/dL Albumin/Globulin Ratio 1.2 (1.0-2.3) Lipase 23 (7-60) U/L Urine Color Urine Appearance Urine pH (5.0-9.0) Ur Specific [place] (1.000-1.035) Urine Protein (NEG) mg/dL Urine Glucose (UA) (NEG) mg/dL Urine Ketones (NEG) mg/dL Urine Occult Blood (<0.03) mg/dL Urine Nitrate (NEG) Urine Bilirubin (NEG) mg/dL Urine Urobilinogen (NEG) mg/dL Ur Leukocyte Esterase (NEG) /uL Urine RBC (0-1) /hpf Urine WBC (0-4) /hpf Ur Squamous Epith Cells (0-4) /hpf Ur Transition Epith Cell (0-2) /hpf Urine Bacteria (0) /hpf Hyaline Casts (0-2) /lpf Urine Mucus (0) /hpf Urine Yeast (Budding) (0) /hpf Ur Culture Indicated? Influenza A (Rapid) Influenza B (Rapid) 06/22/17 06/22/17 06/22/17 Range/Units 17:18 18:05 18:30 WBC (4.5-11.0) K/mcL RBC (4.00-5.20) M/mcL Hgb (12.0-15.0) g/dL Hct (36.0-48.0) % POC Hct 43.0 (36.0-48.0) % MCV (80.0-100.0) fL MCH (26.0-34.0) pg MCHC (31.0-36.0) g/dL RDW (11.5-14.5) % Plt Count (140-440) K/mcL MPV (7.4-10.4) fL Gran % (38.0-78.0) % Lymph % (Auto) (15.5-49.0) % [place] % (Auto) (1.0-12.0) % Eos % (Auto) (0.0-7.0) % Baso % (Auto) (0.0-2.0) % Gran # (1.8-8.0) K/mcL Lymph # (Auto) (1.5-4.8) K/mcL [place] # (Auto) (0.1-0.9) K/mcL Eos # (Auto) (0.0-0.7) K/mcL Baso # (Auto) (0.0-0.3) K/mcL VBG Lactic Acid (0.5-2.2) mmol/L POC Sodium 134 (133-145) mmol/L Sodium (133-145) mmol/L POC Potassium 4.1 (3.3-5.1) mmol/L Potassium (3.3-5.1) mmol/L POC Chloride 100 (96-108) mmol/L Chloride (96-108) mmol/L Carbon Dioxide (22-30) mmol/L POC Total CO2 26 (22-30) mmol/L Anion Gap (8-16) POC BUN 8 (6-20) mg/dl BUN (6-20) mg/dl Creatinine (0.6-1.1) mg/dl POC Creatinine 0.5 L (0.6-1.1) mg/dl GFR Calculation Glucose (70-105) mg/dL POC Glucose 324 H (70-105) mg/dL Calcium (8.6-10.4) mg/dl POC WB Ioniz Calcium 1.04 L (1.16-1.32) mmol/L Total Bilirubin (0.0-1.0) mg/dL AST (0-37) U/l ALT (0-40) U/l Alkaline Phosphatase (39-117) U/L Total Protein (5.9-8.4) gm/dL Albumin (3.2-5.2) gm/dL Globulin (2.2-3.7) gm/dL Albumin/Globulin Ratio (1.0-2.3) Lipase (7-60) U/L Urine Color Yellow Urine Appearance Hazy Urine pH 7.0 (5.0-9.0) Ur Specific [place] 1.014 (1.000-1.035) Urine Protein Neg (NEG) mg/dL Urine Glucose (UA) >=500 A (NEG) mg/dL Urine Ketones 5/tr A (NEG) mg/dL Urine Occult Blood 0.03 A (<0.03) mg/dL Urine Nitrate Neg (NEG) Urine Bilirubin Neg (NEG) mg/dL Urine Urobilinogen Neg (NEG) mg/dL Ur Leukocyte Esterase 250 A (NEG) /uL Urine RBC 13 H (0-1) /hpf Urine WBC 65 H (0-4) /hpf Ur Squamous Epith Cells 2 (0-4) /hpf Ur Transition Epith Cell < 1 (0-2) /hpf Urine Bacteria 0 (0) /hpf Hyaline Casts 1 (0-2) /lpf Urine Mucus Few (0) /hpf Urine Yeast (Budding) Few A (0) /hpf Ur Culture Indicated? Yes Influenza A (Rapid) Presumed negative Influenza B (Rapid) Positive A Disposition Pt seen by [employer]ER/PA only: Yes Clinical Impression: Postoperative abdominal pain, Vomiting, Pyelonephritis, Influenza B Disposition: Xfer As Inpt ([facility]) Condition: Fair Time of Disposition: 19:36
[2017-06-22] MEDS ORDERED: OSELTAMIVIR PHOSPHATE 75 MG CAPSULE PO ONE (19:25)
--- NOTE | 2017-06-22 20:39 | Internal Med History&Physical ---
Medical - H&P: HPI Patient information: Note initiated : 06/22/17 at 8:36 pm Service Date, if different from initiated Date: [] Patient: Raisa Scruggs a 52 y/o F admitted on for Vomiting, pain entire body, cough. Chief complaint: cough and abdominal pain. History of present illness: Ms. Scruggs is a 52 year old Female, S/P laparoscopic cholecystectomy 06/19, who presented with a two-day complaint was doing well, but two days ago developed a cough, fever, flank and abdominal pain. She has some nausea, but no emesis. Last normal BM was earlier today. She didn't get influenza vaccination this season and there are no known sick contacts. The abdominal drain is in place and the Raj-Avilez canister contains serosanguineous fluid without purulence and incisions show no signs of infection. All systems: reviewed and no additional remarkable complaints except as stated ( as stated in history.) Medical - H&P: PMH Medical history: Type 2 IDDM, poorly controlled Right kidney stone, S/P lithotripsy UTI Cholecystitis, cholelithiasis. S/P lap. cholecystectomy 06/19/17 Surgical history: S/P lithotripsy S/P lap cholecystectomy 06/19/17 Pertinent family history: DM, CA, HTN, Kidney stone Functional capacity: independent ambulation Smoking status: Current some day smoker Have you smoked in the last 12 months: Yes Time spent discussing smoking cessation with patient: 3 to 10 minutes Drug use: none Alcohol use: rarely Medical - H&P: Meds Home Medications Medication Instructions Recorded Confirmed Type Hydrocodone/APAP 7.5/325Mg [[place] 1 - 2 tab PO Q6HP PRN #20 tab 06/03/17 Rx 7.5-325Mg] Insulin Aspart [Novolog] 60 unit SQ DAILY 06/03/17 06/18/17 History Lisinopril [Zestril] 10 mg PO DAILY 06/03/17 06/18/17 History DULoxetine [Cymbalta] 30 mg PO DAILY 06/18/17 06/18/17 History traZODone HCL [Trazodone HCl] 50 mg PO HS 06/18/17 06/18/17 History Gabapentin 600 mg PO TID 06/20/17 06/20/17 History Insulin Glargine, Human [Lantus] 60 unit SQ HS 06/20/17 06/20/17 History Ondansetron HCl [Zofran] 4 mg PO Q4HP PRN #30 tab 06/20/17 Rx oxyCODONE HCL/ACETAMINOPHEN 1 each PO Q4HP PRN #60 tab 06/20/17 Rx [Endocet 10-325 mg Tablet] Allergies Allergy/AdvReac Type Severity Reaction Status Date / Time Sulfa (Sulfonamide Allergy Intermediate Rash Verified 06/22/17 16:51 Antibiotics) promethazine [From Phenergan] AdvReac Intermediate Agitated Verified 06/22/17 16 :51 Medical - H&P: Exam - Constitutional Vitals: Temp Pulse Resp BP Pulse Ox 100.7 F H 78 16 128/74 95 06/22/17 19:29 06/22/17 20:01 06/22/17 16:47 06/22/17 20:01 06/22/17 20:01 General appearance: no acute distress - Head Head exam: Present: normal inspection - Eye Eye exam: Present: PERRL - Expanded ENT Exam Mouth exam: Present: dry mucosa Throat exam: Present: normal inspection - Neck Neck exam: Present: normal inspection - Respiratory Respiratory exam: Present: normal respiratory exam - Cardiovascular Cardiovascular exam: Present: normal rate and rhythm - GI/Abdominal GI/Abdominal exam: Present: normal bowel sounds, soft, tenderness. Absent: firm , guarding - Rectal Rectal exam: Present: deferred - Expanded Exam Female exam: Present: deferred Costovertebral Angle Palpated: Yes (tenderness bilaterally) - Extremities Exam Extremities exam: Present: normal inspection - Neurological Exam Neurological exam: Present: alert, CN II-XII intact, oriented X3 Medical - H&P: Reslt - Labs CBC & Chem 7: 06/22/17 17:13 06/22/17 17:13 Labs: Short CBC 06/22/17 Range/Units 17:13 WBC 4.8 (4.5-11.0) K/mcL Hgb 14.5 (12.0-15.0) g/dL Hct 42.3 (36.0-48.0) % Plt Count 302 (140-440) K/mcL BMP 06/22/17 17:13 Sodium 133 Potassium 4.3 Chloride 95 L Carbon Dioxide 22 BUN 8 Creatinine 0.6 Glucose 315 H Calcium 8.9 Liver Function 06/22/17 Range/Units 17:13 Total Bilirubin 0.3 (0.0-1.0) mg/dL AST 14 (0-37) U/l ALT 44 H (0-40) U/l Alkaline Phosphatase 134 H (39-117) U/L Albumin 3.7 (3.2-5.2) gm/dL Urine 06/22/17 Range/Units 18:30 Urine Color Yellow Urine Appearance Hazy Urine pH 7.0 (5.0-9.0) Ur Specific [place] 1.014 (1.000-1.035) Urine Protein Neg (NEG) mg/dL Urine Glucose (UA) >=500 A (NEG) mg/dL - Imaging and Cardiology CT scan - abdomen Status: pending Chest x-ray Status: image reviewed by ct Medical - H&P: A/P (1) Uncontrolled diabetes mellitus Status: Acute check A1C. Currently on Novolog and Lantus. Will continue. Adjust insulin regimen as needed. Counseling regarding diabetic diet provided Patient states she only checks blood sugars 'now and then'. Also, has irregular lifestyle. (2) UTI (urinary tract infection) Status: Acute Had had UTI before with culture positive for E.coli, resistant to Levo and Ciprofloxacin. Was given dose of ceftriaxone in ED, will continue. Will review CT-abdomen with radiology: dd pyelonephritis. (3) Flank pain Status: Acute dd pyelonephritis. Analgesics prn (4) Hypertension, essential Current visit: No Continue Lisinopril (5) Influenza B Current visit: Yes Status: Acute Tamiflu started in ED. Will continue. (6) Hyperglycemia NS IVF and insulin sliding scale started - Narrative A/P Narrative: See above, and S/P Laparoscopic cholecystectomy by dr Hugo Dsouza 06/19/17 for cholecystitis and stones. Drain in place. Dr Dsouza will help manage patient. PLAN: Patient admitted for IV hydration, control or pain, nausea and hyperglycemia. DVT prophylaxis: Lovenox Code status: hand filer balance wheel spent: 45 min, > 50 % on [id number]-in-lbgo encounter, review of lab and imaging and coordination of care
[2017-06-22] MEDS ORDERED: ACETAMINOPHEN 325 MG TABLET PO PRN (20:58)
[2017-06-22] MEDS ORDERED: DEXTROSE 50% 50 ML VIAL IV PRN (20:58)
[2017-06-22] MEDS ORDERED: ONDANSETRON 4 MG/2 ML VIAL IV PRN (20:58)
[2017-06-22] MEDS ORDERED: DEXTROSE 31 GM ORAL.SUSP PO PRN (20:58)
[2017-06-22] MEDS ORDERED: cefTRIAXone 1 GM VIAL ONE (21:07)
[2017-06-22] MEDS ORDERED: HYDROmorphone 2 MG/ML VIAL ONE (21:19)
[2017-06-22] MEDS: DOCUSATE SODIUM 100 MG CAPSULE PO SCH (21:32)
[2017-06-22] MEDS: 0.9 % SODIUM CHLORIDE 1,000 ML IV SCH (21:38)
[2017-06-22] MEDS: FAMOTIDINE 20 MG TABLET PO SCH (21:39)
[2017-06-22] MEDS: INSULIN LISPRO 1 UNIT/0.01 ML UNIT SQ SCH (21:39)
[2017-06-22] MEDS: 0.9 % SODIUM CHLORIDE 10 ML SYRINGE IV SCH (21:43)
[2017-06-22] MEDS: HYDROCODONE/APAP 7.5/325MG TABLET PO PRN (23:11)
[2017-06-23] MEDS: HYDROmorphone 2 MG/ML VIAL IV PRN ×3 (02:48→11:58)
[2017-06-23] MEDS: HYDROCODONE/APAP 7.5/325MG TABLET PO PRN ×3 (04:17→15:46)
[2017-06-23 04:34] LABS: Basophils # (Auto) 0 K/mcL (0.0-0.3); Basophils % (Auto) 0.4 % (0.0-2.0); Eosinophils # (Auto) 0.2 K/mcL (0.0-0.7); Eosinophils % (Auto) 3.4 % (0.0-7.0); Granulocytes % (Auto) 69.2 % (38.0-78.0); Lymphocytes # (Auto) 0.6 K/mcL (1.5-4.8); Lymphocytes % (Auto) 13.7 % (15.5-49.0); Mean Cell Volume 91.5 fL (80.0-100.0); Mean Corpuscular HGB Conc 33.8 g/dL (31.0-36.0); Mean Corpuscular Hemoglobin 30.9 pg (26.0-34.0); Monocytes # (Auto) 0.6 K/mcL (0.1-0.9); Monocytes % (Auto) 13.3 % (1.0-12.0); Platelet Count 239 K/mcL (140-440); RBC 4.18 M/mcL (4.00-5.20); Red Cell Distribution Width 13.2 % (11.5-14.5)
[2017-06-23 04:46] LABS: Estimated Average Glucose(eAG) 301 mg/dL; Hemoglobin A1C 12.1 % HGB (4.0-6.0)
[2017-06-23] MEDS: 0.9 % SODIUM CHLORIDE 1,000 ML IV SCH ×2 (05:51→15:11)
[2017-06-23] MEDS: GABAPENTIN 300 MG CAPSULE PO SCH ×2 (08:21→15:45)
[2017-06-23] MEDS: FAMOTIDINE 20 MG TABLET PO SCH (08:21)
[2017-06-23] MEDS: INSULIN LISPRO 1 UNIT/0.01 ML UNIT SQ SCH ×3 (08:23→17:44)
[2017-06-23] MEDS: 0.9 % SODIUM CHLORIDE 10 ML SYRINGE IV SCH ×2 (08:24→15:49)
[2017-06-23] MEDS: DOCUSATE SODIUM 100 MG CAPSULE PO SCH (08:24)
[2017-06-23] MEDS ORDERED: ENOXAPARIN 40 MG/0.4 ML SYRINGE SQ SCH (09:00)
[2017-06-23] MEDS ORDERED: DULoxetine 30 MG CAPSULE PO SCH (09:00)
[2017-06-23] MEDS ORDERED: INSULIN ASPART SQ SCH (09:00)
[2017-06-23] MEDS ORDERED: cefTRIAXone 2 GM in DEXTROSE 5% IN WATER 50 ML IV SCH (09:00)
[2017-06-23] MEDS ORDERED: LISINOPRIL 10 MG TABLET PO SCH (09:00)
[2017-06-23] MEDS ORDERED: INSULIN GLARGINE, HUMAN 1 UNIT/0.01 ML SQ SCH ×2 (09:00→21:00)
[2017-06-23] MEDS ORDERED: FLU VACC QS2017-18 36MOS UP/PF 60 MCG/0.5 ML SYRINGE IM ONE (10:00)
--- NOTE | 2017-06-23 10:20 | XRay Report ---
CLINICAL INFORMATION: cough, fever, fatigue COMPARISON: 06/17/2017. FINDINGS: The heart size, mediastinum and pulmonary vessels are unremarkable. The lungs are clear. There are no effusions. The bones and soft tissues are within normal limits. IMPRESSION: Normal chest. Interpreted and Authenticated by: Naveen Crawley 06/23/17
--- NOTE | 2017-06-23 12:15 | Cat Scan Report ---
CLINICAL INFORMATION: Three days postop cholecystectomy. Nausea, vomiting and abdominal pain COMPARISON: Remote abdomen/pelvic CT from 07/05/[address] from 06/17/2017 TECHNIQUE: Following enteric contrast, 80 cc of Isovue-300 were injected intravenously, and 60 seconds later, 0.625 mm helical slices were obtained from the mid heart through the subtrochanteric regions. Following reconstruction, 2.5 mm sagittal, coronal and axial reformatted images were processed and reviewed at bone, lung and soft tissue windows. Five minutes later, 0.625 mm helical slices were obtained from the mid heart through the kidneys and viewed at soft tissue windows.The exam was performed using radiation dose optimization techniques including, but not limited to, automated exposure control, adjustment of the mA and/or kV according to patient size and use of iterative reconstruction technique. FINDINGS: Lung bases show minimal bibasilar atelectasis. No effusion. The visualized heart is unremarkable. Images through the abdomen show scattered simple cysts in the right hepatic lobe, ranging up to 26 mm, which are stable since oldest abdominal CT nearly one year prior 07/05/2016. The gallbladder is now surgically absent. There is a surgical drain in proper position in the anterior mesenteric cavity of the right upper lobe. There is no fluid around the drain. A small amount of subcutaneous edema is seen in the drain site and at the surgical excision site, as expected. The gallbladder is now surgically absent. Intrahepatic common hepatic and common bile ducts are moderately dilated. The CBD spanning [address], the CBD was nine mm. There is smooth tapering of the common bile duct in the ampullary region, but no evidence of stone, mass or other cause for distal bile duct obstruction. A pancreatic divisum with mild dilatation of the Santorini duct - 3 mm. Wirsung duct is unremarkable. Pancreas is otherwise normal - no evidence of inflammation or other focal lesion. There is extensive scattered parenchymal scarring throughout the left kidney resulting in mild left renal atrophy. There are scattered tiny nonobstructing stones in the calyces of the left kidney ranging up to 3 mm. There is mild left hydronephrosis - as previously seen with moderate thickening of the transitional epithelium within the left upper collecting system and ureter. No current CT evidence for obstructing ureteral stone, however. The right kidney has undergone comparison hypertrophy spanning 14.8 cm. Few small simple cysts in the right kidney are stable. Both adrenal glands, and aorta are normal. The spleen is mildly enlarged spanning 14 mm but has only mildly increased slightly from the remote CT one year prior. At that time, it was 13 cm. There is no free air, free fluid and no adenopathy. The stomach, small large bowel and appendix are normal. Images through the pelvis show urinary bladder is normal. Anteflexed uterus is normal in size configuration without focal lesion. Bone windows show no osseous abnormality IMPRESSION: 1. Moderate dilatation of the intrahepatic and common bile ducts with no stone or other cause identified for distal common bile duct obstruction. Presumably, the patient has postcholecystectomy papillary stenosis or edema. If there is an obstructive LFT pattern, consider referral to gastroenterology for ERCP and papillotomy. Although there is no CT evidence for a bile leak, this would be better excluded with bile duct contrast injection at the time of ERCP. 2. Mild atrophy of the left kidney with extensive scatter cortical medullary scarring suggesting multiple remote renal infections. There is mild thickening of the transitional epithelium of the left upper collecting system and ureter which could indicate inflammation or fibrosis. Few small nonobstructing stones are are scattered throughout the calyces of the left kidney. 3. Cysts in the right hepatic lobe - stable 4. Borderline splenomegaly which is unchanged from a CT nearly one year prior. Interpreted and Authenticated by: Naveen Crawley 06/23/17
--- NOTE | 2017-06-23 17:49 | Discharge Summary ---
Medical - DS: Prov Patient information: Note initiated : 06/23/17 at 5:05 pm Service Date, if different from initiated Date: [] Patient: Raisa Scruggs 52 y/o F admitted on 06/22/17 for Uncontrolled Diabetes , UTI, Influenza B. Date of admission: 06/22/17 20:42 Discharge date: 06/23/17 Consults: 06/22/17 20:58 Consult to Physician [CONS] Stat Comment: patient known to you Consulting Provider: Coral Dsouza Reason For Exam: Physician to Consult Medical - DS: Meds - Discharge Medications Prescriptions: Insulin Aspart [Novolog] 100 unit SQ ACHS PRN #1 ml PRN Reason: Blood Sugar - High Active and Home Medications: Home Medications Hydrocodone/APAP 7.5/325Mg [[place] 7.5-325Mg] 1 - 2 tab PO Q6HP PRN #20 tab 06/03 [Rx Confirmed 06/22/17 Last Taken 06/22/17 07:00] Insulin Aspart [Novolog] 60 unit SQ DAILY 06/03/17 [History Confirmed 06/22/17 Last Taken 06/22/17 07:00] Lisinopril [Zestril] 10 mg PO DAILY 06/03/17 [History Confirmed 06/22/17 Last Taken 06/22/17 07:00] DULoxetine [Cymbalta] 30 mg PO DAILY 06/18/17 [History Confirmed 06/22/17 Last Taken 06/22/17 07:00] traZODone HCL [Trazodone HCl] 50 mg PO HS 06/18/17 [History Confirmed 06/22/17 Last Taken 06/21/17 20:30] Gabapentin 600 mg PO TID 06/20/17 [History Confirmed 06/22/17 Last Taken 20:30] Insulin Glargine, Human [Lantus] 60 unit SQ HS 06/20/17 [History Confirmed 06/22 Last Taken 06/21/17 20:30] Ondansetron HCl [Zofran] 4 mg PO Q4HP PRN #30 tab 06/20/17 [Rx Confirmed Last Taken 06/22/17 07:00] oxyCODONE HCL/ACETAMINOPHEN [Endocet 10-325 mg Tablet] 1 each PO Q4HP PRN #60 tab 06/20/17 [Rx Confirmed 06/22/17 Last Taken 06/22/17 15:00] Medical - DS: Hosp Hospital course: History of present illness: Ms. Scruggs is a 52 year old Female, S/P laparoscopic cholecystectomy 06/19, who presented with a two-day complaint was doing well, but two days ago developed a cough, fever, flank and abdominal pain. She has some nausea, but no emesis. Last normal BM was earlier today. She didn't get influenza vaccination this season and there are no known sick contacts. The abdominal drain is in place and the Raj-Avilez canister contains serosanguineous fluid without purulence and incisions show no signs of infection. Hospital course: Patient was admitted for observation with Influenza B infection and possible UTI , dd pyelonephritis. She was started on Tamiflu and empirically on Ceftriaxone. Urine culture 06/23 was negative. Patient was feeling better this am, tolerating food. However, still some abdominal pain for which she has been requiring narcotics. A1C is 12. Patient was counseled on healthy lifestyle and better monitoring of blood sugars. Lispro 60 Units daily was discontinued and she was started on am Lantus in addition to the HS dose as well as Lispro sliding scale. She will be discharged today and will FU with dr Dsouza for her post- cholecystectomy care, and her PCP for diabetic care. Discharge diagnosis: Influenza B infection, hyperglycemia Secondary discharge diagnosis: Type 2 IDDM, poorly controlled Right kidney stone, S/P lithotripsy UTI Cholecystitis, cholelithiasis. S/P lap. cholecystectomy 06/19/17 Nicotine use Reason for admission: Cough, abdominal pain, fever Pertinent studies/significant findings: CXR: normal chest CT-abdomen/pelvis: IMPRESSION: 1. Moderate dilatation of the intrahepatic and common bile ducts with no stone or other cause identified for distal common bile duct obstruction. Presumably, the patient has postcholecystectomy papillary stenosis or edema. If there is an obstructive LFT pattern, consider referral to gastroenterology for ERCP and papillotomy. Although there is no CT evidence for a bile leak, this would be better excluded with bile duct contrast injection at the time of ERCP. 2. Mild atrophy of the left kidney with extensive scatter cortical medullary scarring suggesting multiple remote renal infections. There is mild thickening of the transitional epithelium of the left upper collecting system and ureter which could indicate inflammation or fibrosis. Few small nonobstructing stones are are scattered throughout the calyces of the left kidney. 3. Cysts in the right hepatic lobe - stable 4. Borderline splenomegaly which is unchanged from a CT nearly one year prior. Time spent discussing smoking cessation with patient: 3 to 10 minutes - Time Spent with Patient Total time spent providing and/or coordinating discharge services: Less than 30 minutes Medical - DS: Exam - Constitutional Vitals: Vital Signs Temp Pulse Pulse Resp BP BP Pulse Ox 06/23/17 15:49 98.8 F 16 124/80 95 06/23/17 12:00 100.4 F H 16 128/70 94 06/23/17 07:39 100.9 F H 14 136/74 90 06/23/17 04:00 101.5 F H 88 18 130/60 06/22/17 23:39 98.7 F 92 H 16 128/74 06/22/17 20:50 100.0 F H 77 16 124/73 93 06/22/17 20:42 100.3 F H 76 16 110/70 95 06/22/17 20:31 77 124/73 93 06/22/17 20:14 100.0 F H 06/22/17 20:01 78 128/74 95 06/22/17 19:55 78 129/80 95 06/22/17 19:29 100.7 F H 06/22/17 19:23 100.7 F H 06/22/17 19:01 85 127/73 92 06/22/17 18:54 95 06/22/17 18:46 79 130/72 95 06/22/17 18:35 87 115/87 87 L 06/22/17 18:20 100.4 F H 86 137/78 90 06/22/17 17:47 99.4 F H 06/22/17 17:46 80 145/93 93 06/22/17 17:31 80 147/82 93 06/22/17 17:17 79 140/74 94 06/22/17 17:16 85 161/84 95 Intake and Output 06/23/17 06/23/17 06/23/17 05:59 13:59 21:59 Intake Total 1600 / 1600 1480 / 1480 400 / 400 Output Total 251 / 251 400 / 400 225 / 225 Balance 1349 / 1349 1080 / 1080 175 / 175 Intake: IV 1000 / 1000 1000 / 1000 Sodium Chloride 0.9% 1,000 ml @ 1000 / 1000 1000 / 1000 125 mls/hr IV .Q8H ON LICENSE OF [facility] Rx#: [id number] Oral 600 / 600 480 / 480 400 / 400 Output: Void Amount 251 / 251 400 / 400 225 / 225 Other: Meal Lunch Percent of Meal Consumed 75% Feeding Ability Independent # Voids 1 Medical - DS: Data Labs on day of discharge: Labs from last 24 hours 06/23/17 06/23/17 06/22/17 04:00 04:00 18:30 WBC 4.4 L RBC 4.18 Hgb 12.9 Hct 38.3 POC Hct MCV 91.5 MCH 30.9 MCHC 33.8 RDW 13.2 Plt Count 239 MPV 7.1 L Gran % 69.2 Lymph % (Auto) 13.7 L Luce % (Auto) 13.3 H Eos % (Auto) 3.4 Baso % (Auto) 0.4 Gran # 3.0 Lymph # (Auto) 0.6 L Luce # (Auto) 0.6 Eos # (Auto) 0.2 Baso # (Auto) 0 VBG Lactic Acid POC Sodium Sodium POC Potassium Potassium POC Chloride Chloride Carbon Dioxide POC Total CO2 Anion Gap POC BUN BUN Creatinine POC Creatinine GFR Calculation Glucose POC Glucose Hemoglobin A1c 12.1 H Estim Average Glucose 301 Calcium POC WB Ioniz Calcium Total Bilirubin AST ALT Alkaline Phosphatase Total Protein Albumin Globulin Albumin/Globulin Ratio Lipase Urine Color Yellow Urine Appearance Hazy Urine pH 7.0 Ur Specific [place] 1.014 Urine Protein Neg Urine Glucose (UA) >=500 A Urine Ketones 5/tr A Urine Occult Blood 0.03 A Urine Nitrate Neg Urine Bilirubin Neg Urine Urobilinogen Neg Ur Leukocyte Esterase 250 A Urine RBC 13 H Urine WBC 65 H Ur Squamous Epith Cells 2 Ur Transition Epith Cell < 1 Urine Bacteria 0 Hyaline Casts 1 Urine Mucus Few Urine Yeast (Budding) Few A Ur Culture Indicated? Yes Influenza A (Rapid) Influenza B (Rapid) 06/22/17 06/22/17 06/22/17 18:05 17:18 17:13 WBC RBC Hgb Hct POC Hct 43.0 MCV MCH MCHC RDW Plt Count MPV Gran % Lymph % (Auto) Luce % (Auto) Eos % (Auto) Baso % (Auto) Gran # Lymph # (Auto) Luce # (Auto) Eos # (Auto) Baso # (Auto) VBG Lactic Acid 1.2 POC Sodium 134 Sodium POC Potassium 4.1 Potassium POC Chloride 100 Chloride Carbon Dioxide POC Total CO2 26 Anion Gap POC BUN 8 BUN Creatinine POC Creatinine 0.5 L GFR Calculation Glucose POC Glucose 324 H Hemoglobin A1c Estim Average Glucose Calcium POC WB Ioniz Calcium 1.04 L Total Bilirubin AST ALT Alkaline Phosphatase Total Protein Albumin Globulin Albumin/Globulin Ratio Lipase Urine Color Urine Appearance Urine pH Ur Specific [place] Urine Protein Urine Glucose (UA) Urine Ketones Urine Occult Blood Urine Nitrate Urine Bilirubin Urine Urobilinogen Ur Leukocyte Esterase Urine RBC Urine WBC Ur Squamous Epith Cells Ur Transition Epith Cell Urine Bacteria Hyaline Casts Urine Mucus Urine Yeast (Budding) Ur Culture Indicated? Influenza A (Rapid) Presumed negative Influenza B (Rapid) Positive A 06/22/17 06/22/17 17:13 17:13 WBC 4.8 RBC 4.66 Hgb 14.5 Hct 42.3 POC Hct MCV 90.7 MCH 31.1 MCHC 34.2 RDW 13.1 Plt Count 302 MPV 7.1 L Gran % 73.3 Lymph % (Auto) 11.5 L Luce % (Auto) 12.6 H Eos % (Auto) 2.3 Baso % (Auto) 0.3 Gran # 3.5 Lymph # (Auto) 0.6 L Luce # (Auto) 0.6 Eos # (Auto) 0.1 Baso # (Auto) 0 VBG Lactic Acid POC Sodium Sodium 133 POC Potassium Potassium 4.3 POC Chloride Chloride 95 L Carbon Dioxide 22 POC Total CO2 Anion Gap 16.0 POC BUN BUN 8 Creatinine 0.6 POC Creatinine GFR Calculation 106 Glucose 315 H POC Glucose Hemoglobin A1c Estim Average Glucose Calcium 8.9 POC WB Ioniz Calcium Total Bilirubin 0.3 AST 14 ALT 44 H Alkaline Phosphatase 134 H Total Protein 6.9 Albumin 3.7 Globulin 3.2 Albumin/Globulin Ratio 1.2 Lipase 23 Urine Color Urine Appearance Urine pH Ur Specific [place] Urine Protein Urine Glucose (UA) Urine Ketones Urine Occult Blood Urine Nitrate Urine Bilirubin Urine Urobilinogen Ur Leukocyte Esterase Urine RBC Urine WBC Ur Squamous Epith Cells Ur Transition Epith Cell Urine Bacteria Hyaline Casts Urine Mucus Urine Yeast (Budding) Ur Culture Indicated? Influenza A (Rapid) Influenza B (Rapid) Preliminary micro results at discharge 06/22/17 18:30 Urine Culture - Preliminary Urine - Clean Void [facility] - DS: A/P - Patient/Caregiver Discharge Instructions Activity: increase activity as tolerated Diet: Consistent Carbohydrate Additional Instructions: Check blood sugars before meals and before bedtime. Give Lispro as per sliding scale. Record. FU with primary care provider to discuss further adjustments - Problem Maintenance (1) Uncontrolled diabetes mellitus Status: Acute Qualifiers: Diabetes mellitus type: type 2 Diabetes mellitus complication status: with hyperglycemia Diabetes mellitus fdc insulin use: with termite renewal inspector use Qualified Code(s): E11.65 - Type 2 diabetes mellitus with hyperglycemia; Z79.4 - correction (current) use of insulin (2) UTI (urinary tract infection) Status: Inactive (3) Flank pain Status: Acute (4) Hypertension, essential (5) Influenza B Status: Acute (6) Hyperglycemia - Follow up Plan Follow up with: Jose Ray [Referring] - (A1C: 12 Lispro 60 units daily was discontinued. Now on Lantus BID and SS. Still needs adjustments. Please, see in 1-2 weeks) Disposition: Home, Self-Care Prognosis: Good Rehab Potential: Good Overall status at discharge: patient is progressing back to baseline
[2017-06-23] MEDS ORDERED: traZODone HCL 50 MG TABLET PO SCH (21:00)
== END 2017-06-23 18:59 | disposition home or self-care (01) ==
LOC: MEDSUR 16:46 → ED 16:46 → MEDSUR 20:53
PROVIDERS: ADMIT Specialist; ATTEND Specialist